=== PATIENT | male | born 1960 | race Caucasian/White ===

== ENCOUNTER 2024-12-06 14:46 | Outpatient (CLI) | payer BC | END 2024-12-06 14:47 | disposition home or self-care (01) | LOC: BICMRI 14:46 | PROVIDERS: ATTEND Surgery Surgery of the Hand | DX: M66.84 Spontaneous rupture of other tendons, hand (principal); S63.411 Traumatic rupture of collateral ligament of left index finger at metacarpophalangeal and interphalangeal joint; M85.641 Other cyst of bone, right hand ==